=== PATIENT | female | born 1945 | race African-American/Black ===

== ENCOUNTER 2016-12-13 01:40 | Inpatient (IN) | payer OTHER ==
--- NOTE | ~2016-12-13 | CR72 ---
[facility] A Service of [facility] RADIOLOGY TEXT RESULTS PATIENT: CINTHYA TIPTON LOCATION: [facility] 572-01 : 43 UNIT #: [id number] AGE: [address]: Maria Eugenia Pace MD SEX: F ORDER DR: [id number] [facility] [address] [place], [place] [address] [id number] MR#: [id number] Acc #: [id number] NAME: CINTHYA TIPTON : 1945 SEX: F STUDY DATE/TIME: 12/13/2016 1:47 UNIT: [facility] ROOM: [facility] STUDY DESCRIPTION: CR Chest Single View Portable Attending Physician: Maria Eugenia Pace M.D. Ordering Physician: Abdullahi Morgan M.D. Primary Care Physician: [facility] MEDICAL IMAGING REPORT This report is preliminary unless electronic signature is present EXAM AP portable chest date 12/13/2016 at 01:47 HISTORY Fever, weakness, and shortness of breath. Symptoms present for 1 day. Asthma. COMPARISON PA lateral chest radiograph 03/08/2015 FINDINGS Prominent nipple shadow projects over the right lower chest, similar to the prior exam. Heart size is within normal limits. No pleural effusion or pneumothorax is seen. Questionable left lower lobe airspace disease obscuring the diaphragmatic margin. No definite pleural effusion or pneumothorax is seen. IMPRESSION Questionable retrocardiac atelectasis or infiltrate obscuring the diaphragmatic margin. Consider PA and lateral chest followup. Dictated by... Michelle Ag M.D. THIS IS AN ELECTRONICALLY VERIFIED REPORT Michelle Ag M.D. at 12/13/2016 10:47 PM MARY/ezequiel TD: 12/13/2016 22:01 JOB #: [id number] MEDICAL IMAGING REPORT COPY
--- NOTE | ~2016-12-13 | HP ---
Unit #: [id number] #: [id number] Patient: CINTHYA AMES [id number] [address] [place], [place] [address] [id number] MR#: [id number] NAME: CINTHYA AMES ROOM: 68844 Age: 71 Sex: F Admission Date: 12/13/2016 : 1945 Attending Physician: Maria Eugenia Pace M.D. Primary Care Physician: [facility] HISTORY AND PHYSICAL CHIEF COMPLAINT Weakness, cough. HISTORY OF PRESENT ILLNESS Ms. Ames is a nice 71-year-old female who presented to the emergency room for the above. The patient states she has had a cough productive of only white sputum for approximately two weeks. She denies any fever during this timeframe. She does endorse some nausea and did have a couple of episodes of emesis four to five days ago. Episodes of emesis were nonbloody. However, late last night she began feeling increasingly weak. She began having a shaking of her left hand. This concerned her and, thus, she presented to the emergency department. Upon presentation the patient's vital signs were relatively stable, but she did have an elevated temperature of 100.5. Oxygen saturations were normal at 97% on room air. Examination per emergency room records indicated the patient was mildly anxious and she was in atrial fibrillation which is chronic for her. Lung exam at that time was unremarkable. Chest x-ray, however, revealed a questionable retrocardiac pneumonia. Lab work reveals a mild leukopenia with a white blood cell count of 3 and decreased (1) of 101 this morning. Creatinine is also elevated at 1.7, up from a baseline of 1.1 in 05/2016. The patient is being referred for admission. Right now she states that her cough is a bit better and her weakness is better. She has not had any further tremor of her left-sided extremity. She denies any other new focal tingling, numbness or weakness of the extremities. She denies any falls at home. She denies any palpitations, chest pain or orthopnea. She denies any new significant shortness of breath outside of what she has had for the last two weeks. PAST MEDICAL HISTORY 1. Diabetes mellitus type 2, noninsulin requiring and likely uncontrolled. The patient does not check sugars at home. 2. Recent diagnosis of right upper extremity DVT at [facility] within the last several months. Records not available. The patient states this is secondary to her heart rhythm?? 3. Hypertension. 4. Chronic atrial fibrillation. Maintained on rate control and anticoagulation. 5. Hyperlipidemia. 6. Record review indicates also seasonal allergies, schizophrenia and neuropathy. 7. Asthma. PAST SURGICAL HISTORY 1. Tonsillectomy. Unit #: [id number] #: [id number] Patient: CINTHYA AMES 2. Hysterectomy with bilateral salpingo-oophorectomy. 3. Incision and drainage of cyst on the patient's buttocks. SOCIAL HISTORY The patient smoked a half pack of cigarettes per day she states for 15 years. She denies any alcohol or illicit drug use. She does have four children, but lives independently and is independent with all ADLs. FAMILY HISTORY Significant for diabetes, hypertension, coronary artery disease, several forms of cancer. ALLERGIES Lisinopril, but reaction is unknown. HOME MEDICATIONS 1. Xarelto 20 mg daily. 2. Glipizide 10 mg daily. 3. Metoprolol succinate 25 mg daily. 4. Lovastatin 20 mg at bedtime. REVIEW OF SYSTEMS The patient denies any recent weight loss or gain. She does endorse polydipsia and polyuria. She denies any vision changes, sore throat, constipation, diarrhea, melena, hematochezia, hematuria, dysuria, any new skin rashes, no new focal neurologic deficits. Otherwise 10-point review of systems is reviewed extensively and is negative with the exception of the history of present illness. PHYSICAL EXAMINATION GENERAL: The patient is awake. She is alert. She is oriented times three and pleasant. VITALS: Current temperature 99.2, maximum temperature 100.5, blood pressure 140/90, pulse rate 113, respiratory rate 18, oxygen saturation in the high 90s on room air. HEENT: Pupils equally round and reactive to light bilaterally. Anicteric sclerae. No conjunctival pallor. Oropharynx with mildly dry mucous membranes. No erythema or exudate. NECK: Supple. No lymphadenopathy. No thyromegaly. No jugular venous distension. LUNGS: Mild diffuse expiratory wheeze bilaterally with some rhonchi in the left lower lobe. HEART: Irregularly irregular and mildly tachycardic, but no appreciable murmur, rub or gallop. ABDOMEN: Soft, obese, nontender and nondistended. Positive bowel sounds. No appreciable hepatosplenomegaly. EXTREMITIES: No cyanosis, clubbing or edema. Pedal pulses are 2/4. SKIN: Warm, moist, without rash. NEUROLOGIC: Cranial nerves II through XII intact. The patient's strength is 5/5 in upper and lower extremities bilaterally. Deep tendon reflexes are 2/4 in upper and lower extremities bilaterally, namely biceps and patellar bilaterally. Babinski is negative. Gait was not assessed. MUSCULOSKELETAL: No significant erythema or swelling of joints noted. PSYCHIATRIC: Pleasant. Alert and oriented times three. No suicidal or homicidal ideation. DIAGNOSTIC STUDIES IMAGING: Chest x-ray done in the emergency department reveals mild Unit #: [id number] #: [id number] Patient: NATALIEANES,CINTHYA cardiomegaly and a questionable left-sided retrocardiac density versus atelectasis. LABORATORY: In the emergency department, sodium 130, potassium 3.1, chloride 98, bicarb 22, BUN 14, creatinine 1.7, glucose 236. Anion gap corrected is approximately 12. AST elevated at 112, ALT 54, albumin 3.1. CBC this morning reveals a white blood cell count of 3.0, hemoglobin 13.3, platelet count 101,000. Differential reveals 8% bands and 12% lymphocytes. Urinalysis done in the emergency department reveals 2+ protein, 1+ blood. It has no RBCs or WBCs and 0-2 granular casts. Troponin initially was also negative at 0.06. CARDIOVASCULAR: EKG done in the emergency department reveals atrial fibrillation with rapid ventricular response with a heart rate of 107. There is no acute ST or T wave abnormality. However, there is a Q wave present in V1, V2, V3. ASSESSMENT 1. Sepsis secondary to left-sided community acquired pneumonia. 2. Acute kidney injury, likely prerenal, on questionable underlying chronic kidney disease. 3. Mild asthma versus chronic obstructive pulmonary disease exacerbation. 4. Atrial fibrillation. 5. Hypokalemia. 6. Thrombocytopenia. Likely infection related. 7. Diabetes mellitus type 2. Likely uncontrolled with associated peripheral neuropathy. 8. Transaminitis, likely secondary to illness. 9. Hypertension. 10. History of schizophrenia. 11. Atrial fibrillation with rapid ventricular response, with only mild tachycardia. The patient is rate controlled on anticoagulation. 12. Schizophrenia. 13. Mild protein malnutrition. 14. Obesity. PLAN 1. Will admit the patient to telemetry and inpatient status. 2. The patient was given Rocephin and azithromycin in the emergency room and I will continue these antibiotics. I will also initiate sepsis protocol, obtain blood cultures and STAT lactic acid level. I will also check an influenza swab in addition to a urine strep pneumo antigen. Sputum Gram stain and culture are also pending. Will initiate low-dose IV fluids as well. 3. In regard to the patient's acute kidney injury, again IV fluids and recheck creatinine in the morning. Record review indicates the patient had creatinine of 1.1 in 05/2016 and may have some mild underlying chronic kidney disease. Avoid nephrotoxic medication. 4. Solu-Medrol 40 mg IV times 1 in regard to chronic obstructive pulmonary disease. Otherwise continue with duo-neb treatments. Monitor for hypoxia. 5. Will replace potassium orally in addition to adding some to IV fluids. Monitor levels closely. 6. In regard to the patient's atrial fibrillation, I am just going to continue her home dose of metoprolol and her Xarelto for now. If heart rate becomes more uncontrolled, may initiate Cardizem if necessary. Unit #: [id number] #: [id number] Patient: CINTHYA AMES 7. Will hold the patient's oral diabetes medications. Obtain hemoglobin A1c, Accu-Cheks morning and evening and continue with a NovoLog sliding scale for now. 8. Will monitor transaminitis in the morning. If not improving, can obtain hepatitis panel. 9. Continue home medications for hypertension. 10. Continue home medications for hyperlipidemia. 11. Thrombocytopenia. Will recheck blood work in the morning. 12. DVT prophylaxis with Xarelto. GI prophylaxis with Pepcid. 13. Will try to obtain copy of most recent H&P and discharge summary from [facility], given her history of blood clots recently. She is being maintained on Xarelto therapy and, thus, she should be covered for both her atrial fibrillation and her history of DVT. Dictated by Maria Eugenia Pace M.D. Irma TD: 12/13/2016 08:29 JOB #: [id number] HISTORY AND PHYSICAL X Maria Eugenia Pace MD HISTORY AND PHYSICAL
--- NOTE | ~2016-12-13 | EKG ---
PATIENT: CINTHYA TIPTON UNIT #: [id number] Ventricular Rate: 107 BPM Atrial Rate: 115 BPM QRS Duration: 74 ms Q-T Interval: 336 ms QTC Calculation(Bezet): 448 ms Calculated R [place]: 1 degrees Calculated T [place]: -22 degrees Diagnosis Line: Atrial fibrillation with rapid ventricular Diagnosis Line: response with premature ventricular or aberrantly Diagnosis Line: conducted complexes Diagnosis Line: Anterior infarct , age undetermined Diagnosis Line: Abnormal ECG Diagnosis Line: No previous ECGs available Diagnosis Line: Confirmed by SAMY FRANCIS MD ([id number]) on Diagnosis Line: 12/15/2016 12:02:43 AM INTERPRETING MD: TITO PISANO
--- NOTE | ~2016-12-13 | EKG ---
PATIENT: CINTHYA TIPTON UNIT #: [id number] Ventricular Rate: 101 BPM Atrial Rate: 78 BPM QRS Duration: 74 ms Q-T Interval: 342 ms QTC Calculation(Bezet): 443 ms Calculated R [place]: 1 degrees Calculated T [place]: -18 degrees Diagnosis Line: Atrial fibrillation with rapid ventricular Diagnosis Line: response with premature ventricular or aberrantly Diagnosis Line: conducted complexes Diagnosis Line: Septal infarct , age undetermined Diagnosis Line: Abnormal ECG Diagnosis Line: No previous ECGs available Diagnosis Line: Confirmed by SAMY FRANCIS MD ([id number]) on Diagnosis Line: 12/15/2016 12:03:54 AM INTERPRETING MD: TITO PISANO
--- NOTE | ~2016-12-13 | EKG ---
PATIENT: CINTHYA TIPTON UNIT #: [id number] Ventricular Rate: 143 BPM Atrial Rate: 153 BPM QRS Duration: 70 ms Q-T Interval: 266 ms QTC Calculation(Bezet): 410 ms Calculated R [place]: 27 degrees Calculated T [place]: -12 degrees Diagnosis Line: Atrial fibrillation with rapid ventricular Diagnosis Line: response Diagnosis Line: Low voltage QRS Diagnosis Line: Septal infarct (cited on or before 13-DEC-2016) Diagnosis Line: Abnormal ECG Diagnosis Line: When compared with ECG of 13-DEC-2016 14:51, Diagnosis Line: (unconfirmed) Diagnosis Line: No significant change was found Diagnosis Line: Confirmed by ZHEN LIANG MD ([id number]) on 12/16/2016 Diagnosis Line: 7:21:13 PM INTERPRETING MD: AZUL PISANO
--- NOTE | ~2016-12-13 | CO ---
Unit #: [id number] #: [id number] Patient: CINTHYA TIPTON [id number] [address] [place], [place] [address] [id number] I MR#: [id number] NAME: CINTHYA TIPTON ROOM: 572 Age: 71 Sex: F Admission Date: 12/13/2016 : 1945 Attending Physician: Irasema Dior M.D. [facility] Phys[facility] By [facility] Consultation Date: 12/13/2016 CONSULTATION REPORT HISTORY OF PRESENT ILLNESS This is a 71-year-old female, previously known to our group with a past medical history of permanent atrial fibrillation, hypertension, hyperlipidemia, diabetes mellitus type 2, and a right brachial embolus, status post right brachial embolectomy in 05/2016. The patient is also known to have asthma/COPD and active tobacco abuse. She was seen in [facility] in 05/[address] Pollard for atrial fibrillation. A 2D echocardiogram was completed on 05/19/2016 and revealed a left ventricular ejection fraction of 60% to 65% with trace to mild mitral regurgitation, and a small circumferential pericardial effusion with no evidence of tamponade. She presented to the emergency department on 12/13/2016 with complaints of a productive cough, dizziness, fatigue, and shaking in the arms. Initial labs revealed a white blood cell count of 3, hemoglobin 13.3, with a platelet count of 101. Sodium was mildly low at 130 with a potassium of 3.1. BUN was 14 with a creatinine of 1.7. Previous creatinine was 1.1 in 05/2016. LFTs were mildly elevated. Initial troponin was 0.06, but then increased to 0.28. The patient was given Tylenol. Chest x-ray revealed a questionable retrocardiac atelectasis or infiltrate obscuring the diaphragm. She was given Rocephin and azithromycin for possible pneumonia. She was admitted for further observation. Cardiology was consulted due to elevated troponin. There are no reports of chest pain, but the patient has had shortness of breath. There are no reports of dizziness, palpitations, or syncope. PAST MEDICAL HISTORY 1. A 2D echocardiogram on 05/19/2016, was a technically difficult study. Severe LVH with a small cavity size and normal contractility. Left ventricular ejection fraction of 60% to 65%. Trace to mild mitral regurgitation. Small circumferential pericardial effusion of no hemodynamic significance. 2. Permanent atrial fibrillation, on chronic anticoagulation with Xarelto. 3. Hypertension. 4. Hyperlipidemia. 5. Diabetes mellitus type 2. 6. Status post right brachial embolectomy due to embolus in 05/2016. 7. Asthma/COPD. 8. Seasonal allergies. 9. Active tobacco abuse. PAST SURGICAL HISTORY 1. Right brachial embolectomy in 05/2016. Unit #: [id number] #: [id number] Patient: CINTHYA TIPTON 2. Tonsillectomy. 3. Hysterectomy. 4. Cyst removal. HOME MEDICATIONS Xarelto 20 mg p.o. daily, glipizide 10 mg p.o. daily, metoprolol succinate 25 mg p.o. daily, lovastatin 20 mg p.o. daily. ALLERGIES Lisinopril. SOCIAL HISTORY The patient is an active smoker. She smokes half pack of cigarettes per day and smoked for over 15 years. There are no reports of alcohol or illicit drug use. FAMILY HISTORY Significant for diabetes, hypertension, and heart disease. REVIEW OF SYSTEMS 10-point review of systems is negative except for details noted above in HPI. PHYSICAL EXAMINATION VITAL SIGNS: Temperature 99.7, pulse 110, blood pressure 147/67. CONSTITUTIONAL: This is a 71-year-old female, in no acute distress. SKIN: Warm and dry. NECK: Supple. No jugular vein distention. No hepatojugular reflux. Normal carotid upstrokes. No carotid bruits auscultated. HEART: S1 and S2. Irregularly irregular. No murmurs, rubs, or gallops. LUNGS: Bilateral breath sounds are clear except for rhonchi in the left lower lobe. Respirations are even and nonlabored. No rales or wheezes. ABDOMEN: Soft, nontender, and nondistended. Positive bowel sounds auscultated x4 quadrants. No ascites noted. EXTREMITIES: Bilateral lower extremities have no pretibial pitting edema. DP and PT pulses are 2+. Capillary refill less than 3 seconds. DIAGNOSTIC STUDIES LABORATORY RESULTS: White blood cell count 2.7, hemoglobin 13.3, hematocrit 39.4, platelets 95. Sodium 130, potassium 3.1, chloride 98, CO2 of 23, BUN 14, creatinine 1.7, glucose 236. AST 112, ALT 54, alkaline phos 94, albumin 3.1. Troponin 0.06 and 0.28. Hemoglobin A1c is 6.7. Lactic acid 1.8. INR 1.1. Influenza A and B negative. Urinalysis positive with 2+ protein and 1+ blood. Blood cultures pending. IMAGING STUDIES: Chest x-ray reveals questionable retrocardiac atelectasis or infiltrate obscuring the diaphragm margin on the left. CARDIOVASCULAR STUDIES: Telemetry reveals atrial fibrillation. IMPRESSION 1. Pneumonia. 2. Permanent atrial fibrillation with rapid ventricular response. 3. Chronic anticoagulation with Xarelto. 4. Left ventricular ejection fraction of 60%. 5. Acute coronary syndrome with troponin of 0.28. 6. Asthma/chronic obstructive pulmonary disease. Unit #: [id number] #: [id number] Patient: CINTHYA TIPTON 7. Hypertension. 8. Diabetes mellitus, type 2. 9. Acute kidney injury, resolved. 10. Mildly elevated LFTs. 11. Active tobacco abuse. PLAN 1. The patient presented to the hospital with weakness and cough. She was admitted for pneumonia and started on antibiotics. 2. Cardiology was consulted for elevated troponin. 3. The patient has been started on aspirin and Lovenox. 4. Xarelto has been discontinued. 5. Because of the patient's significant respiratory failure and elevated troponin, she has been recommended to undergo cardiac catheterization on Thursday. 6. TSH and lipid profile has been ordered. 7. Repeat cardiac enzymes and EKG will be trended. 8. She has been encouraged to quit smoking. Dictated by... WILDA Zamarripa/louis TD: 12/14/2016 16:19 JOB #: [id number] CONSULTATION REPORT X X CONSULTATION REPORT
--- NOTE | ~2016-12-13 | DS ---
Unit #: [id number] #: [id number] Patient: CINTHYA TIPTON [id number] [place], [place] [address] [id number] I MR#: [id number] NAME: CINTHYA TIPTON ROOM: 572 Age: 71 Sex: F Admission Date: 12/13/2016 : 1945 Discharge Date: 12/16/2016 Attending Physician: Irasema Dior M.D. Primary Care Physician: [facility] DISCHARGE SUMMARY DIAGNOSIS ON ADMISSION Pneumonia, acute respiratory failure. DIAGNOSES ON DISCHARGE 1. Left lower lobe pneumonia. 2. Acute respiratory failure, resolved. 3. Elevated troponin, status post cardiac catheterization. 4. Type 2 diabetes mellitus. 5. Chronic atrial fibrillation. 6. Hyperlipidemia. 7. Bronchial asthma. CONSULTATIONS Dr. Claros - Cardiac consultation. LABS AND PROCEDURES DONE Patient's creatinine is 0.9, sodium 136, potassium is 4.8. AST is 113, ALT is 60. LDL is 26. WBC 5.5, hemoglobin 12.6, platelet count is 95. Troponin was 0.27. Patient had a cardiac catheterization done. Report is not available but, as per staff, it did not show any significant disease. Patient's blood culture did not reveal any growth so far. Patient's hemoglobin A1c is 6.7. Influenzae A and B screen was negative. TSH was 2.28. Patient's chest x-ray revealed left lower lobe opacity. HOSPITAL COURSE 71-year-old female was admitted to [facility] with pneumonia. Details are as per H and P. Pneumonia: Patient was treated with antibiotics. Patient is doing good and is afebrile. Elevated troponin: Patient underwent cardiac catheterization without any significant findings as per preliminary report. Unit #: [id number] #: [id number] Patient: CINTHYA TIPTON Today, patient is comfortable, is not in any acute distress and wants to go home. On physical examination, VITAL SIGNS reveal a temperature of 98.4, pulse is 56/minute, respiratory rate is 16/minute, blood pressure is 134/87. HEENT examination revealed no conjunctival congestion. Sclerae is not icteric. NECK is supple. Trachea is central. RESPIRATORY examination revealed breath sounds equal bilaterally. There are no wheezes or crackles. HEART is regular rate and rhythm. S1, S2. ABDOMEN is soft, nontender. Bowel sounds are present in all four quadrants. NEUROLOGICALLY, patient is alert to person, place and time. Power is 5 out of 5 bilaterally. Sensations are grossly intact. SKIN is warm and dry. RECOMMENDATIONS ON DISCHARGE Condition is stable. Activity is as tolerated. MEDICATIONS 1. Xarelto 20 mg p.o. daily. 2. Tylenol 650 mg p.o. q.6 hours p.r.n. pain. 3. Norvasc 2.5 mg p.o. daily. 4. Toprol XL 50 mg p.o. daily. 5. Pravachol 20 mg p.o. daily. 6. Enteric coated aspirin 81 mg p.o. daily. 7. Glipizide 10 mg p.o. daily. 8. Omnicef 300 mg p.o. b.i.d. for five days. FOLLOWUP 1. Patient is advised to follow up with primary care physician in one week and have a CBC and BMP done. 2. Patient advised to follow up with cardiology as recommended. 3. Patient advised to call primary care physician or go to ER if her condition changes. 4. We will check patient's pulse ox on room air prior to discharge. Dictated by... Melania Davidson TD: 12/16/2016 10:59 JOB #: [id number] (Continuation) Dictated by... Melania Davidson TD: 12/16/2016 11:04 JOB #: [id number] Unit #: [id number] #: [id number] Patient: CINTHYA TIPTON DISCHARGE SUMMARY X Irasema Dior MD DISCHARGE SUMMARY
--- NOTE | ~2016-12-13 | EKG ---
PATIENT: CINTHYA TIPTON UNIT #: [id number] Ventricular Rate: 116 BPM Atrial Rate: 138 BPM QRS Duration: 72 ms Q-T Interval: 296 ms QTC Calculation(Bezet): 411 ms Calculated R [place]: -7 degrees Calculated T [place]: 15 degrees Diagnosis Line: Atrial fibrillation with rapid ventricular Diagnosis Line: response Diagnosis Line: Low voltage QRS Diagnosis Line: Abnormal ECG Diagnosis Line: When compared with ECG of 14-DEC-2016 05:54, Diagnosis Line: (unconfirmed) Diagnosis Line: T wave amplitude has increased in Lateral leads Diagnosis Line: Confirmed by ZHEN LIANG MD ([id number]) on 12/16/2016 Diagnosis Line: 7:28:06 PM INTERPRETING MD: AZUL PISANO
[2016-12-13 01:19] LABS: POC - TROPONIN 0.06 ng/mL (<=0.05)
[~2016-12-13 01:40] MED LIST: NAPROSYN500 MG PO
[2016-12-13 01:54] LABS: BASOPHIL% 0.4 % (0-2.5); EOSINOPHIL# 0.2 X10e3 (0-0.7); EOSINOPHIL% 5.4 % (0.0-7.0); HEMATOCRIT 39.8 % (35.0-45.0); HEMOGLOBIN 13.3 gm/dL (12.0-16.0); LYMPHOCYTE# 0.4 X10e3 (1.0-3.5); LYMPHOCYTE% 14.5 % (17.0-45.0); MEAN CELL VOLUME 88.8 FL (83-96); MEAN CORPUSCULAR HEMOGLOBIN 29.6 PG (28-34); MEAN CORPUSCULAR HGB CONC 33.3 g/dL (30-36); MEAN PLATELET VOLUME 9.6 FL (6.5-11.5); MONOCYTE# 0.2 X10e3 (0-1.0); MONOCYTE% 5.7 % (3.0-12.0); NEUTROPHIL# 2.2 X10e3 (1.5-7.1); PLATELET COUNT 101 X10e3 (140-420); RED BLOOD COUNT 4.49 X10e (3.90-5.30); RED CELL DISTRIBUTION WIDTH 14.6 % (11.0-15.5)
[2016-12-13 01:56] LABS: DIFF IND NO
[2016-12-13 01:57] LABS: ALBUMIN SERUM 3.1 g/dL (3.5-5.0); BILIRUBIN, DIRECT 0.1 mg/dL (0.0-0.2); BILIRUBIN,INDIRECT 0.2 mg/dL (0.0-0.9); BILIRUBIN,TOTAL 0.3 mg/dL (0.2-2.0); BUN/CREATININE RATIO 8.23; CREATININE SERUM 1.7 mg/dL (0.6-1.4); GLOM FILT RATE Estimated 37.9 mL/min (>60); POTASSIUM 3.1 mmol/L (3.5-5.1); PROTEIN TOTAL SERUM 6.3 g/dL (6.0-8.3)
[2016-12-13 02:33] LABS: URINE APPEARANCE CLOUDY; URINE BILIRUBIN NEG (NEG); URINE BLOOD 1+ (NEG); URINE COLOR DK YELLOW; URINE GLUCOSE NEG (NEG); URINE KETONE TRACE (NEG); URINE LEUKOCYTE ESTERASE NEG (NEG); URINE NITRATE NEG (NEG); URINE PH 5.5 (5-8); URINE PROTEIN 2+ (NEG); URINE SPECIFIC GRAVITY 1.025 (1.003-1.035)
[2016-12-13 02:36] LABS: URINE BACTERIA AUWI NEG (NEGATIVE); URINE SQUAMOUS EPITHELIAL CELL OCC /[HPF]
[2016-12-13 02:51] LABS: CULTURE INDICATED? NO; U HYALINE CASTS AUWI 0-2 /[LPF]; URINE GRANULAR CAST 0-2 /[HPF]
[2016-12-13] MEDS ORDERED: METOPROLOL SUCC25 MG PO (03:06)
[2016-12-13] MEDS ORDERED: XARELTO20 MG PO (03:06)
[2016-12-13] MEDS ORDERED: GLIPIZIDE10 MG PO (03:06)
[2016-12-13] MEDS ORDERED: LOVASTATIN20 M2 PO (03:07)
[2016-12-13 04:21] LABS: BASOPHIL% 0.4 % (0-2.5); EOSINOPHIL# 0.1 X10e3 (0-0.7); EOSINOPHIL% 5.5 % (0.0-7.0); HEMATOCRIT 39.4 % (35.0-45.0); HEMOGLOBIN 13.3 gm/dL (12.0-16.0); LYMPHOCYTE# 0.4 X10e3 (1.0-3.5); MEAN CELL VOLUME 88.1 FL (83-96); MEAN CORPUSCULAR HEMOGLOBIN 29.8 PG (28-34); MEAN CORPUSCULAR HGB CONC 33.8 g/dL (30-36); MEAN PLATELET VOLUME 9.2 FL (6.5-11.5); MONOCYTE# 0.2 X10e3 (0-1.0); MONOCYTE% 5.8 % (3.0-12.0); NEUTROPHIL% 74.3 % (40-75); PLATELET COUNT 95 X10e3 (140-420); RED BLOOD COUNT 4.48 X10e (3.90-5.30); RED CELL DISTRIBUTION WIDTH 14.5 % (11.0-15.5); WHITE BLOOD COUNT 2.7 X10e3 (4.0-10.5)
[2016-12-13 04:47] LABS: DIFF IND YES
[2016-12-13 04:53] LABS: ACANTHOCYTES PRESENT; ANISOCYTOSIS SL; BURR CELLS PRESENT; OVALOCYTES PRESENT; PLATELET ESTIMATE DECREASED (NORMAL)
[2016-12-13 10:33] LABS: INR 1.1
[2016-12-13] MEDS ORDERED: AMLODIPINE BES2.5 MG PO (10:41)
[2016-12-13 16:03] LABS: CHOLESTEROL 75 mg/dL (0-200); HDL CHOLESTEROL 17 mg/dL (35-95); LDL CHOLESTEROL 36 mg/dL (-130); LDL/HDL RATIO 2 RATIO (0-4); TRIGLYCERIDES 111 mg/dL (10-160)
[2016-12-13 20:26] LABS: INFLUENZA A NEG (NEG); INFLUENZA B NEG (NEG)
[2016-12-14 05:45] LABS: HEMATOCRIT 38.1 % (35.0-45.0); HEMOGLOBIN 12.7 gm/dL (12.0-16.0); MEAN CELL VOLUME 88.5 FL (83-96); MEAN CORPUSCULAR HEMOGLOBIN 29.6 PG (28-34); MEAN CORPUSCULAR HGB CONC 33.4 g/dL (30-36); MEAN PLATELET VOLUME 9.6 FL (6.5-11.5); RED BLOOD COUNT 4.31 X10e (3.90-5.30); RED CELL DISTRIBUTION WIDTH 14.2 % (11.0-15.5); WHITE BLOOD COUNT 3.4 X10e3 (4.0-10.5)
[2016-12-14 06:17] LABS: BILIRUBIN,TOTAL 0.3 mg/dL (0.2-2.0); BUN/CREATININE RATIO 9.16; CALCIUM SERUM 8.3 mg/dL (8.4-10.2); CREATININE SERUM 1.2 mg/dL (0.6-1.4); GLOM FILT RATE Estimated 56.6 mL/min (>60); MAGNESIUM 1.7 mg/dL (1.6-3.0); POTASSIUM 3.8 mmol/L (3.5-5.1); PROTEIN TOTAL SERUM 6.1 g/dL (6.0-8.3)
[2016-12-14 06:18] LABS: CHOLESTEROL 62 mg/dL (0-200); HDL CHOLESTEROL 14 mg/dL (35-95); LDL CHOLESTEROL 26 mg/dL (-130); LDL/HDL RATIO 2 RATIO (0-4); TRIGLYCERIDES 109 mg/dL (10-160)
[2016-12-15 06:27] LABS: HEMATOCRIT 40.8 % (35.0-45.0); HEMOGLOBIN 13.4 gm/dL (12.0-16.0); MEAN CELL VOLUME 88.7 FL (83-96); MEAN CORPUSCULAR HEMOGLOBIN 29.2 PG (28-34); MEAN CORPUSCULAR HGB CONC 32.9 g/dL (30-36); MEAN PLATELET VOLUME 9.9 FL (6.5-11.5); RED BLOOD COUNT 4.6 X10e (3.90-5.30); RED CELL DISTRIBUTION WIDTH 14.5 % (11.0-15.5); WHITE BLOOD COUNT 4.4 X10e3 (4.0-10.5)
[2016-12-15 06:32] LABS: PARTIAL THROMBOPLASTIN TIME 31.5 SECONDS (23.5-31.3)
[2016-12-15 06:51] LABS: BLOOD UREA NITROGEN 9 mg/dL (9-23); BUN/CREATININE RATIO 8.18; CALCIUM SERUM 8.4 mg/dL (8.4-10.2); CARBON DIOXIDE 19 mmol/L (22-31); CHLORIDE 110 mmol/L (100-111); CREATININE SERUM 1.1 mg/dL (0.6-1.4); GLOM FILT RATE Estimated ABOVE60 mL/min (>60); GLUCOSE FASTING 160 mg/dL (70-110); POTASSIUM 4.5 mmol/L (3.5-5.1); SODIUM 134 mmol/L (135-145)
[2016-12-16 06:47] LABS: HEMATOCRIT 37.9 % (35.0-45.0); HEMOGLOBIN 12.6 gm/dL (12.0-16.0); MEAN CELL VOLUME 88.6 FL (83-96); MEAN CORPUSCULAR HEMOGLOBIN 29.4 PG (28-34); MEAN CORPUSCULAR HGB CONC 33.2 g/dL (30-36); MEAN PLATELET VOLUME 9.5 FL (6.5-11.5); RED BLOOD COUNT 4.27 X10e (3.90-5.30); RED CELL DISTRIBUTION WIDTH 14.4 % (11.0-15.5); WHITE BLOOD COUNT 5.5 X10e3 (4.0-10.5)
[2016-12-16 07:17] LABS: BLOOD UREA NITROGEN 8 mg/dL (9-23); BUN/CREATININE RATIO 8.88; CALCIUM SERUM 8.5 mg/dL (8.4-10.2); CARBON DIOXIDE 21 mmol/L (22-31); CHLORIDE 107 mmol/L (100-111); CREATININE SERUM 0.9 mg/dL (0.6-1.4); GLOM FILT RATE Estimated ABOVE60 mL/min (>60); GLUCOSE FASTING 146 mg/dL (70-110); POTASSIUM 4.8 mmol/L (3.5-5.1); SODIUM 136 mmol/L (135-145)
[2016-12-16] MEDS ORDERED: ACETAMINOPHEN PO (11:06)
[2016-12-16] MEDS ORDERED: ASPIRIN81 MG PO (11:09)
[2016-12-16] MEDS ORDERED: OMNICEF300 MG PO (11:10)
== END 2016-12-16 12:26 | disposition home or self-care (01) | DRG 286 ==
LOC: CED 01:40 → CEDOF 03:20 → C5C 08:55
PROVIDERS: Emergency Medicine; Internal Medicine; Internal Medicine Cardiovascular Disease
PROC: 4A023N7 Measurement of Cardiac Sampling and Pressure, Left Heart, Percutaneous Approach (ICD-10-PCS; principal; 2016-12-15)
PROC: B211YZZ Fluoroscopy of Multiple Coronary Arteries using Other Contrast (ICD-10-PCS; 2016-12-15)
PROC: B215YZZ Fluoroscopy of Left Heart using Other Contrast (ICD-10-PCS; 2016-12-15)
DX: I24.9 Acute ischemic heart disease, unspecified (principal); J96.00 Acute respiratory failure, unspecified whether with hypoxia or hypercapnia; J18.9 Pneumonia, unspecified organism; N17.9 Acute kidney failure, unspecified; E11.65 Type 2 diabetes mellitus with hyperglycemia; D69.6 Thrombocytopenia, unspecified; E44.1 Mild protein-calorie malnutrition; J44.9 Chronic obstructive pulmonary disease, unspecified; G62.9 Polyneuropathy, unspecified; J44.0 Chronic obstructive pulmonary disease with (acute) lower respiratory infection; I48.2 Chronic atrial fibrillation; F20.0 Paranoid schizophrenia; J44.1 Chronic obstructive pulmonary disease with (acute) exacerbation; E78.5 Hyperlipidemia, unspecified; J45.909 Unspecified asthma, uncomplicated; Z79.01 Long term (current) use of anticoagulants; F17.210 Nicotine dependence, cigarettes, uncomplicated; E87.6 Hypokalemia; R74.0 Nonspecific elevation of levels of transaminase and lactic acid dehydrogenase [LDH]; E66.9 Obesity, unspecified
CPT/HCPCS: 36415; 71010; 80048; 80053; 80061; 80076; 81003; 82553; 82947; 83036; 83605; 83735; 84443; 84484; 85025; 85027; 85610; 85730; 87040; 87804; 93005; 94640; 94760; 97116; 97162; 97165; 97530; 99285; C1769; C1887; C1894; G8978-GP; G8979-GP; G8987-GO; G8988-GO; G8989-GO; J0456; J0696; J1644; J1650; J1815; J2250; J3010